=== PATIENT | male | born 1955 | race Caucasian/White ===

== ENCOUNTER 2021-06-01 03:23 | Emergency (ER) | payer MEDICARE, OTHER, SELFPAY ==
[2021-06-01 03:33] VITALS: BP 165/95; PULSE 77; RESP 18; TEMP 36.9; O2SAT 97; BMI 27.3
--- NOTE | 2021-06-01 03:40 | PC.NURSE ---
pt states his urine in his catheter has been pink to clear today but tonight it became bloody with clots, urine in catheter bag is noted to be bloody no clots noted at this time but pt states there has been some clots
--- NOTE | 2021-06-01 03:47 | ED.MALEGU ---
HPI - Male Genitourinary General Chief complaint: Urogenital-Male Stated complaint: BLOOD IN URINE BAG Time Seen by Provider: 06/01/21 03:42 Source: patient Mode of arrival: Ambulatory History of Present Illness HPI Narrative: Patient here with family. Complains of blood in the Ventura bag. Patient postop day 2 prostate surgery. At [facility]. He was discharged home yesterday in the afternoon. He states he had some pink/urine in the Ventura bag. However late tonight had nicole gross blood in catheter and bag. He is on blood thinner which he stopped last Saturday. He did resume it yesterday on Saturday. He is on Xarelto for atrial fibrillation. Patient has 200-300 mL of bright red blood in Ventura bag on arrival. Related Data Previous Rx's Medication Instructions Recorded nitrofurantoin 100 mg PO Q12H #10 cap 05/31/16 monohydrate/macrocrystals 100 mg capsule (Macrobid) Allergies Allergy/AdvReac Type Severity Reaction Status Date / Time adhesive tape [ADHESIVE TAPE] Allergy Mild skin Unverified 06/26/17 12:34 breaks out Review of Systems Review of Systems Narrative: GENERAL: Denies chills, fatigue, malaise, fever, sweats. HEENT: Denies sinus pain, ear pain, sore throat RESPIRATORY: Denies dyspnea, cough CARDIOVASCULAR: Denies chest pain, palpitations GASTROINTESTINAL: Denies nausea, vomiting, abdominal pain : Denies dysuria, frequency, positive for hematuria MUSCULOSKELETAL: denies muscle or bony pain SKIN: Denies rash, skin lesions NEUROLOGIC: Denies weakness, numbness ROS Unobtainable: All systems reviewed & are unremarkable except as noted in HPI and below Exam Narrative Exam Narrative: GENERAL: in no distress, not toxic not dyspneic HEAD: Normocephalic. EYES: Pupils equal round No scleral icterus. GASTROINTESTINAL: Abdomen soft, surgical incisions intact. Dry. : Bright red blood in Ventura tubing and catheter. Bladder scan 53 mL. NEURO: AOx4. SKIN: Warm and dry PSYCH: Not anxious, is cooperative Initial Vital Signs Initial Vital Signs: Vital Signs Temperature 98.5 F 06/01/21 03:33 Pulse Rate 77 06/01/21 03:33 Respiratory Rate 18 06/01/21 03:33 Blood Pressure 165/95 H 06/01/21 03:33 Pulse Oximetry 97 06/01/21 03:33 Course Orders Ordered: ED Orders 06/01/21 03:46 CBC Auto Diff [Complete Blood Count AUTO DIFF] Stat CMP [Comprehensive Metabolic Panel] Stat PT [Prothrombin Time INR] Stat PTT [Partial Thromboplastin Time] Stat Reevaluation(s) Reevaluation #1: Staff has irrigated the bladder as well as tubing. It is pink tinged irrigation into being and Ventura bag at this time. Time: 05:12 Consultations Consultation #1: Spoke with [facility]rology with [facility]. Spoke with Dr. Gonzalez, she instructs patient can be discharged from the emergency department this morning in to be in the office this morning at 8:30 a.m. in the morning. In 3 hours. Time: 05:31 Vital Signs Vital signs: Vital Signs - 8 hr 06/01/21 03:33 06/01/21 05:14 Temperature 98.5 F Pulse Rate 77 73 Respiratory Rate 18 Blood Pressure 165/95 H 162/81 H Pulse Oximetry 97 96 MDM - Male Genitourinary Lab Data Result diagrams: 06/01/21 04:12 06/01/21 04:12 Labs: Lab Results 06/01/21 06/01/21 06/01/21 Range/Units 04:12 04:12 04:12 WBC 10.0 (4.5-11.0) X10^3/uL RBC 4.36 L (4.5-5.9) X10^6/uL Hgb 13.1 L (13.5-17.5) g/dL Hct 39.3 L (41-53) % MCV 90.1 (80-100) fL MCH 30.1 (26-34) PG MCHC 33.4 (30-36) % RDW 13.5 (11.6-14.8) % Plt Count 156 (150-400) X10^3/uL Neut % (Auto) 76.7 H (50-75) % Lymph % (Auto) 14.3 L (25-40) % [place] % (Auto) 6.8 (3-14) % Eos % (Auto) 2.0 (2-4) % Baso % (Auto) 0.2 (0-2) % Neut # (Auto) 7700 H (6931-9189) /uL Lymph # (Auto) 1400 (5429-7713) /uL [place] # (Auto) 700 (0-900) /uL Eos # (Auto) 200 (0-450) /uL Baso # (Auto) 0 (0-100) /uL PT 15.5 H (10.1-12.7) SECONDS INR 1.4 H (0.9-1.3) APTT 33 (26.4-36.2) SECONDS Sodium 138 (137-145) mmol/L Potassium 3.8 (3.4-5.1) mmol/L Chloride 104 (98-107) mmol/L Carbon Dioxide 27 (22-32) mmol/L BUN 12 (9-20) mg/dL Creatinine 0.75 (0.66-1.25) mg/dL Estimated GFR > 60.0 (>60) mL/min BUN/Creatinine Ratio 16.0 (6-22) Glucose 184 H (80-110) mg/dL Calcium 8.5 (8.4-10.2) mg/dL Total Bilirubin 0.9 (0.2-1.3) mg/dL AST 24 (17-59) IU/L ALT 18 (<50) IU/L Alkaline Phosphatase 60 (38-126) U/L Total Protein 6.4 (6.3-8.2) g/dL Albumin 3.7 (3.5-5.0) g/dL Globulin 2.7 (1.7-4.1) g/dL Albumin/Globulin Ratio 1.4 (1.0-2.8) MDM Narrative Medical decision making narrative: Appropriate for discharge home. Laboratory studies are reassuring. No hypotension or tachycardia. Staff able to irrigate bladder and clear Ventura tube and bag. I did review with urologist on-call for patient's surgical group. Patient to be in the office in 3 hours for evaluation. He will not take his Xarelto today. Return precautions reviewed with patient and family. They agree with treatment plan and discharge Discharge Plan Departure Patient Disposition: Home Clinical Impression: Post-op bleeding Instructions: How to Care for Your Ventura Catheter -- Male Activity Restrictions/Additional Instructions: Be and your urologist office in 3 hours. Inform staff your here and the on-call urologist has given instruction free to be seen this morning at 8:[address] Gonzalez is on-call. Do not take Xarelto today. Return if worse if any questions or concerns Prescriptions: No Action nitrofurantoin monohyd/m-cryst [Macrobid] 100 MG capsule 100 mg PO Q12H Qty: 10 0RF
[2021-06-01 04:26] LABS: Add Manual Diff / Slide Review NO; Basophils Absolute Auto 0 /uL (0-100); Basophils Percent Auto 0.2 % (0-2); Eosinophils Absolute Auto 200 /uL (0-450); Hematocrit 39.3 % (41-53); Hemoglobin 13.1 g/dL (13.5-17.5); Lymphocytes Absolute Auto 1400 /uL (1100-4500); Lymphocytes Percent Auto 14.3 % (25-40); Mean Corpuscular HGB Conc 33.4 % (30-36); Mean Corpuscular Hemoglobin 30.1 PG (26-34); Mean Corpuscular Volume 90.1 fL (80-100); Monocytes Absolute Auto 700 /uL (0-900); Monocytes Percent Auto 6.8 % (3-14); Neutrophils Absolute Auto 7700 /uL (1500-7000); Neutrophils Percent Auto 76.7 % (50-75); Platelet Count 156 X10^3/uL (150-400); Red Blood Cell Count 4.36 X10^6/uL (4.5-5.9); Red Cell Distribution Width 13.5 % (11.6-14.8)
[2021-06-01 04:30] LABS: INR 1.4 (0.9-1.3); Prothrombin Time 15.5 SECONDS (10.1-12.7)
[2021-06-01 04:33] LABS: PTT Partial Thromboplastin Tim 33 SECONDS (26.4-36.2)
[2021-06-01 04:41] LABS: Alanine Aminotransferase 18 IU/L (<50); Albumin 3.7 g/dL (3.5-5.0); Albumin Globulin Ratio 1.4 (1.0-2.8); Alkaline Phosphatase 60 U/L (38-126); Aspartate Aminotransferase 24 IU/L (17-59); Bilirubin Total 0.9 mg/dL (0.2-1.3); Blood Urea Nitrogen 12 mg/dL (9-20); Calcium 8.5 mg/dL (8.4-10.2); Carbon Dioxide 27 mmol/L (22-32); Chloride 104 mmol/L (98-107); Estimated Glomerular Filt Rate > 60.0 mL/min (>60); Globulin 2.7 g/dL (1.7-4.1); Glucose 184 mg/dL (80-110); HEMOLYSIS < 15 (0-50); Potassium 3.8 mmol/L (3.4-5.1); Sodium 138 mmol/L (137-145); Total Protein 6.4 g/dL (6.3-8.2)
--- NOTE | 2021-06-01 05:10 | PC.NURSE ---
pt's ludwig irrigated with rochelle 700 ml NS with pink tinged fluid noted returning, Irrigation fluid hung to infuse thru catheter, pt tolerating procedure well
[2021-06-01 05:14] VITALS: BP 162/81; PULSE 73; O2SAT 96
[2021-06-01 05:30] VITALS: BP 167/83; PULSE 64; O2SAT 96
--- NOTE | 2021-06-01 05:42 | PC.NURSE ---
Addendum entered by Meseret Umana R.N. 06/01/21 06:14: pt received 2000ml irrigation fluid Original Note: irrigation complete, urine continues to be blood tinged
[2021-06-01 06:00] VITALS: BP 172/82; PULSE 62; O2SAT 97
[2021-06-01 06:30] VITALS: BP 174/83; PULSE 68; O2SAT 97
[2021-06-01 07:01] VITALS: BP 159/83; PULSE 81; O2SAT 96
--- NOTE | 2021-06-01 07:07 | PC.NURSE ---
catheter emptied, urine noted bloody with clots
== END 2021-06-01 07:09 | disposition home or self-care (01) ==
PROVIDERS: Emergency Provider Emergency Medicine
DX: N99.820 Postprocedural hemorrhage of a genitourinary system organ or structure following a genitourinary system procedure (principal); Z79.01 Long term (current) use of anticoagulants
CPT/HCPCS: 36415; 80053; 85025; 85610; 85730; 99283

== ENCOUNTER 2022-08-05 08:06 | Emergency (ER) | payer MEDICARE, OTHER, SELFPAY ==
[2022-08-05] VITALS (19 sets, daily range): BP systolic 91–126; BP diastolic 51–61; PULSE 50–60; RESP 18–25; TEMP 36.6; O2SAT 95–98; BMI 27.3
--- NOTE | 2022-08-05 08:08 | ED_ITS ---
HPI - Chest Pain General Chief Complaint: Arrhythmia/Palpitations Stated Complaint: heart pain,lbp Time Seen by Provider: 08/05/22 08:08 History of Present Illness HPI narrative: 66-year-old male nonsmoker with history of AFib on anticoagulation presents with his in the chief complaint of feeling unwell for at least the past 3 or 4 days. He states it started with some runny nose and a sore throat. He states the sore throat has been sufficient to interfere with him eating much or drinking much for the past few days. He denies any change in his medications or missed doses. He states that late last evening he went into an episode of atrial fibrillation that went away on its own by this morning and he presents today because he has been sweaty and feeling unwell. He feels dizzy and lightheaded particularly upon standing with improvement when he sits down. He denies nausea, vomiting or diarrhea. He has had no dysuria, frequency or urgency. Related Data Previous Rx's Medication Instructions Recorded nitrofurantoin 100 mg PO Q12H #10 caps 05/31/16 monohydrate/macrocrystals 100 mg capsule (Macrobid) Allergies Allergy/AdvReac Type Severity Reaction Status Date / Time adhesive tape [ADHESIVE TAPE] Allergy Mild skin Verified 08/05/22 09:41 breaks out tamsulosin [From Flomax] AdvReac Verified 08/05/22 09:41 Review of Systems Review of Systems Narrative: GENERAL: See HPI HEENT: See HPI RESPIRATORY: Denies dyspnea, cough, wheezing, hemoptysis, sputum. CARDIOVASCULAR: See HPI GASTROINTESTINAL: See HPI : Denies dysuria, frequency, incontinence, hematuria, urinary retention. MUSCULOSKELETAL: denies weakness, joint pain, or bony pain SKIN: Denies rash, skin lesions, or other NEUROLOGIC: Denies weakness, headache, numbness, change in speech, confusion, seizures, incoordination. PSYCHIATRIC: No concerning psychosocial issues. 12 point review of systems is negative except for those stated above Patient History Social History Smoking Status: Former smoker Exam Narrative Exam Narrative: GENERAL: [66] year old patient appears stated age. Well-developed patient, in mild distress. HEAD: Atraumatic. Normocephalic. EYES: Pupils equal round and reactive. Extraocular motions intact. No scleral icterus. No injection or drainage. ENT: Nose without bleeding, purulent drainage. Minimal erythema with postnasal drip, tonsillar hypertrophy or exudate. Airway patent. NECK: Trachea midline. Non tender CARDIOVASCULAR: Bradycardic but rhythm without murmurs, gallops, or rubs. RESPIRATORY: Clear to auscultation. Breath sounds equal bilaterally. No wheezes, rales, or rhonchi. GASTROINTESTINAL: Abdomen soft, non-tender, nondistended. EXTREMITIES: No edema or joint tenderness. BACK: Nontender without deformity or crepitance. No flank tenderness. NEURO: AOx3. SKIN: No rash or erythema of visible areas Initial Vital Signs Initial Vital Signs: Vital Signs Pulse Rate 51 L 08/05/22 08:10 Pulse Oximetry 97 08/05/22 08:10 Course Orders Ordered: ED Orders 08/05/22 08:13 Complete Blood Count AUTO DIFF Stat Comprehensive Metabolic Panel Stat Covid-19 + FLU A/B + RSV - PCR Stat Lactate (Lactic Acid) Stat Magnesium Stat NT-proBNP (BNP-Adult 18+) Stat Procalcitonin Stat Strep Grp A by PCR Rapid Stat Throat Culture Stat Troponin & CK Cardiac Panel Stat EKG-12 Lead Stat 08/05/22 08:35 Blood Culture Stat 08/05/22 10:35 BMP [Basic Metabolic Panel] Stat Troponin & CK Cardiac Panel Stat Discontinued Medications Lactated Ringer's (Lactated Ringers) 1,000 mls @ 1,000 mls/hr IV BOLUS ONE Stop: 08/05/22 09:10 Last Infusion: 08/05/22 09:41 Dose: 0 mls/hr Documented By: Admin: 08/05/22 08:17 Dose: 1,000 mls/hr Documented By: GRADY Lactated Ringer's (Lactated Ringers) 1,000 mls @ 1,000 mls/hr IV BOLUS ONE Stop: 08/05/22 10:46 Last Infusion: 08/05/22 11:00 Dose: 0 mls/hr Documented By: Admin: 08/05/22 09:55 Dose: 1,000 mls/hr Documented By: CTS Vital Signs Vital signs: Vital Signs - 8 hr 08/05/22 08:18 08/05/22 08:10 08/05/22 08:14 Temperature 97.8 F Pulse Rate 50 L 51 L 50 L Pulse Rate [Orthostatic Lying] Pulse Rate [Orthostatic Sitting] Pulse Rate [Orthostatic Standing] Respiratory Rate 18 Blood Pressure 109/56 L Blood Pressure [Orthostatic Lying] Blood Pressure [Orthostatic Sitting] Blood Pressure [Orthostatic Standing] Pulse Oximetry 98 97 98 Oxygen Delivery Method Room Air 08/05/22 08:14 08/05/22 08:30 08/05/22 08:30 Temperature Pulse Rate 59 L Pulse Rate [Orthostatic Lying] Pulse Rate [Orthostatic Sitting] Pulse Rate [Orthostatic Standing] Respiratory Rate 21 Blood Pressure 109/56 L 91/51 L Blood Pressure [Orthostatic Lying] Blood Pressure [Orthostatic Sitting] Blood Pressure [Orthostatic Standing] Pulse Oximetry 97 Oxygen Delivery Method 08/05/22 08:45 08/05/22 08:45 08/05/22 09:00 Temperature Pulse Rate 57 L Pulse Rate [Orthostatic Lying] Pulse Rate [Orthostatic Sitting] Pulse Rate [Orthostatic Standing] Respiratory Rate 18 Blood Pressure 99/55 L 104/58 L Blood Pressure [Orthostatic Lying] Blood Pressure [Orthostatic Sitting] Blood Pressure [Orthostatic Standing] Pulse Oximetry 96 Oxygen Delivery Method 08/05/22 09:00 08/05/22 09:15 08/05/22 09:15 Temperature Pulse Rate 56 L 56 L Pulse Rate [Orthostatic Lying] Pulse Rate [Orthostatic Sitting] Pulse Rate [Orthostatic Standing] Respiratory Rate 18 18 Blood Pressure 106/56 L Blood Pressure [Orthostatic Lying] Blood Pressure [Orthostatic Sitting] Blood Pressure [Orthostatic Standing] Pulse Oximetry 95 95 Oxygen Delivery Method 08/05/22 11:06 Temperature Pulse Rate Pulse Rate [Orthostatic Lying] 52 L Pulse Rate [Orthostatic Sitting] 56 L Pulse Rate [Orthostatic Standing] 56 L Respiratory Rate Blood Pressure Blood Pressure [Orthostatic Lying] 109/59 L Blood Pressure [Orthostatic Sitting] 126/57 L Blood Pressure [Orthostatic Standing] 119/57 L Pulse Oximetry Oxygen Delivery Method MDM - Chest Pain Lab Data 08/05/22 08:13 08/05/22 10:35 Labs: Lab Results 08/05/22 08/05/22 08/05/22 Range/Units 08:13 08:13 08:13 WBC 7.4 (4.5-11.0) X10^3/uL RBC 5.35 (4.5-5.9) X10^6/uL Hgb 16.0 (13.5-17.5) g/dL Hct 47.0 (41-53) % MCV 87.8 (80-100) fL MCH 30.0 (26-34) PG MCHC 34.2 (30-36) % RDW 13.8 (11.6-14.8) % Plt Count 188 (150-400) X10^3/uL Neut % (Auto) 60.4 (50-75) % Lymph % (Auto) 27.7 (25-40) % [place] % (Auto) 11.0 (3-14) % Eos % (Auto) 0.4 L (2-4) % Baso % (Auto) 0.5 (0-2) % Neut # (Auto) 4500 (1901-0920) /uL Lymph # (Auto) 2100 (1125-3151) /uL [place] # (Auto) 800 (0-900) /uL Eos # (Auto) 0 (0-450) /uL Baso # (Auto) 0 (0-100) /uL Sodium (137-145) mmol/L Potassium (3.4-5.1) mmol/L Chloride (98-107) mmol/L Carbon Dioxide (22-32) mmol/L BUN (9-20) mg/dL Creatinine (0.66-1.25) mg/dL Estimated GFR (>60) mL/min BUN/Creatinine Ratio (6-22) Glucose (80-110) mg/dL Lactate (0.7-2.1) mmol/L Calcium (8.4-10.2) mg/dL Magnesium (1.6-2.3) mg/dL Total Bilirubin (0.2-1.3) mg/dL AST (17-59) IU/L ALT (<50) IU/L Alkaline Phosphatase (38-126) U/L Total Creatine Kinase (55-170) U/L CK-MB (CK-2) CK-MB (CK-2) Rel Index Troponin I (0.01-0.034) ng/mL NT-Pro-B Natriuret Pep (<125) pg/mL Total Protein (6.3-8.2) g/dL Albumin (3.5-5.0) g/dL Globulin (1.7-4.1) g/dL Albumin/Globulin Ratio (1.0-2.8) Procalcitonin 0.13 (<0.5) ng/mL SARS-CoV-2 (PCR) (Negative) Influenza A (RT-PCR) (NEGATIVE) Influenza B (RT-PCR) (NEGATIVE) RSV (PCR) (Negative) Group A Strep (PCR) Negative (Negative) 08/05/22 08/05/22 08/05/22 Range/Units 08:13 08:13 08:13 WBC (4.5-11.0) X10^3/uL RBC (4.5-5.9) X10^6/uL Hgb (13.5-17.5) g/dL Hct (41-53) % MCV (80-100) fL MCH (26-34) PG MCHC (30-36) % RDW (11.6-14.8) % Plt Count (150-400) X10^3/uL Neut % (Auto) (50-75) % Lymph % (Auto) (25-40) % [place] % (Auto) (3-14) % Eos % (Auto) (2-4) % Baso % (Auto) (0-2) % Neut # (Auto) (2340-2622) /uL Lymph # (Auto) (3553-2208) /uL [place] # (Auto) (0-900) /uL Eos # (Auto) (0-450) /uL Baso # (Auto) (0-100) /uL Sodium 132 L (137-145) mmol/L Potassium 4.2 (3.4-5.1) mmol/L Chloride 93 L (98-107) mmol/L Carbon Dioxide 25 (22-32) mmol/L BUN 32 H (9-20) mg/dL Creatinine 1.36 H (0.66-1.25) mg/dL Estimated GFR 57 L (>60) mL/min BUN/Creatinine Ratio 23.5 H (6-22) Glucose 238 H (80-110) mg/dL Lactate 2.2 H (0.7-2.1) mmol/L Calcium 9.3 (8.4-10.2) mg/dL Magnesium 1.9 (1.6-2.3) mg/dL Total Bilirubin 0.6 (0.2-1.3) mg/dL AST 32 (17-59) IU/L ALT 30 (<50) IU/L Alkaline Phosphatase 99 (38-126) U/L Total Creatine Kinase 52 L (55-170) U/L CK-MB (CK-2) TNP CK-MB (CK-2) Rel Index TNP Troponin I 0.035 H (0.01-0.034) ng/mL NT-Pro-B Natriuret Pep 206 H (<125) pg/mL Total Protein 7.2 (6.3-8.2) g/dL Albumin 4.2 (3.5-5.0) g/dL Globulin 3.0 (1.7-4.1) g/dL Albumin/Globulin Ratio 1.4 (1.0-2.8) Procalcitonin (<0.5) ng/mL SARS-CoV-2 (PCR) Positive H (Negative) Influenza A (RT-PCR) Flu a negative (NEGATIVE) Influenza B (RT-PCR) Flu b negative (NEGATIVE) RSV (PCR) Negative (Negative) Group A Strep (PCR) (Negative) 08/05/22 08/05/22 Range/Units 10:35 10:35 WBC (4.5-11.0) X10^3/uL RBC (4.5-5.9) X10^6/uL Hgb (13.5-17.5) g/dL Hct (41-53) % MCV (80-100) fL MCH (26-34) PG MCHC (30-36) % RDW (11.6-14.8) % Plt Count (150-400) X10^3/uL Neut % (Auto) (50-75) % Lymph % (Auto) (25-40) % [place] % (Auto) (3-14) % Eos % (Auto) (2-4) % Baso % (Auto) (0-2) % Neut # (Auto) (6946-3751) /uL Lymph # (Auto) (4007-8786) /uL [place] # (Auto) (0-900) /uL Eos # (Auto) (0-450) /uL Baso # (Auto) (0-100) /uL Sodium 131 L (137-145) mmol/L Potassium 4.3 (3.4-5.1) mmol/L Chloride 96 L (98-107) mmol/L Carbon Dioxide 25 (22-32) mmol/L BUN 32 H (9-20) mg/dL Creatinine 1.07 (0.66-1.25) mg/dL Estimated GFR > 60 (>60) mL/min BUN/Creatinine Ratio 29.9 H (6-22) Glucose 203 H (80-110) mg/dL Lactate 1.7 (0.7-2.1) mmol/L Calcium 8.4 (8.4-10.2) mg/dL Magnesium (1.6-2.3) mg/dL Total Bilirubin (0.2-1.3) mg/dL AST (17-59) IU/L ALT (<50) IU/L Alkaline Phosphatase (38-126) U/L Total Creatine Kinase 41 L (55-170) U/L CK-MB (CK-2) TNP CK-MB (CK-2) Rel Index TNP Troponin I (0.01-0.034) ng/mL NT-Pro-B Natriuret Pep (<125) pg/mL Total Protein (6.3-8.2) g/dL Albumin (3.5-5.0) g/dL Globulin (1.7-4.1) g/dL Albumin/Globulin Ratio (1.0-2.8) Procalcitonin (<0.5) ng/mL SARS-CoV-2 (PCR) (Negative) Influenza A (RT-PCR) (NEGATIVE) Influenza B (RT-PCR) (NEGATIVE) RSV (PCR) (Negative) Group A Strep (PCR) (Negative) Point of Care Testing Glucose POC 241 ECG Data Interpretation: [0816] EKG is sinus ramesh with normal rhythm rate [ 51] and free of any signs of ischemia or ectopy. No ST segmental elevation or depression. No T wave inversions. 1st degree block NE 224 MDM Narrative Medical decision making narrative: CC: 66-year-old male with sore throat, sweating, dizzy and lightheaded, recent AFib Complicating co-morbidities: Age, AFib on anticoagulation Data collected from: Patient Medical records reviewed: Prior notes reviewed in our EMR Differential considered, but not limited to: Strep pharyngitis, COVID, flu, cardiac ischemia, other infectious source, dehydration, electrolyte abnormality versus other Exam documented above, pertinent findings include: Moist mucous membranes, slightly erythematous posterior pharynx, heart rate is regular though slightly slow, no significant increased work of breathing or abnormal lung sounds, abdomen soft Lab Test results independently reviewed as above. Pertinent findings: Independently reviewed EKG as above Treatments: Fluids x2L Re-evaluations: Patient feeling significant improvement after fluids. No longer dizzy. Orthostatic negative. Labs improved Discussion: Patient with various symptoms for the past few days, questionably had an AFib episode last night which had resolved prior to his arrival. He has had sore throat for the past 4 days but states that it is improving. His primary complaint is of lightheadedness upon standing. His exam is very reassuring, labs initially noted some evidence of dehydration with increased creatinine, his initial lactate was elevated as well. Patient was given 2 L of fluids and felt significant improvement, labs improved, he is no longer orthostatic, he is ambulatory in the department and tolerating orals. He is in no respiratory distress. He has had symptoms for the past 4 days and presumably the sore throat has been from COVID. That being said he is not a great candidate for Paxlovid at this time Disposition: see below, along with detailed discharge instructions that have been reviewed with patient as well as indications for ED re-evaluation and additional outpatient follow up Discharge Plan Departure Patient Disposition: Home Clinical Impression: COVID-19, Acute dehydration Instructions: DI for Dehydration -- Adult, COVID-19 Activity Restrictions/Additional Instructions: *You have been diagnosed with [ COVID-19] *What to do: ?* per recommendations from the CDC and the [facility] Department of Health ?* stay home except to get medical care. ?Restrict activities outside your home, except for getting medical care. ?Do not go to work, school, or public areas. ?Avoid using public transportation, ride sharing, or taxis. ?* separate yourself from other people in your home. ?* call ahead before visiting your doctor ?* Wear a facemask ?* Cover your coughs and sneezes ?* Clean your hands often ?* Avoid sharing household items ?* Clean all high-touch services every day ?* Monitor your symptoms and seek prompt medical attention if your illness is worsening, particularly with difficulty in breathing. You may discontinue your isolation when: ?1. You have been fever-free for at least 24 hours without the use of fever reducing medication, AND ?2. Your symptoms are getting better, AND ?3. At least 5 days have passed since symptoms first appeared ?4. If you have fever, continue to stay home until fever resolves Individuals with laboratory confirmed COVID-19 who have not had any symptoms may discontinue home isolation when at least 5 days have passed since the date of their first COVID-19 diagnostic test and have had no subsequent illness You should notifiy any friends and family that have been in close contact *If up to date on COVID Vaccines, then they do not need to quarantine unless symptoms develop. Get tested on day 5 (or sooner if symptoms develop). Take precautions and watch for symptoms until day 10 *If NOT up to date on COVID Vaccines, then CDC recommends quarantine for at least 5 full days. Wear a well fitted mask at home if you must be around others. If they ?develop symptoms they should get tested. If they remain asymptomatic they should get tested on day 5. They should take precautions and monitor for symptoms until day 10. Prescriptions: No Action nitrofurantoin monohyd/m-cryst [Macrobid] 100 MG capsule 100 mg PO Q12H Qty: 10 0RF Stand Alone Forms: Patient Portal/API
[2022-08-05] MEDS: LACTATED RINGERS 1,000 ML 1000 ML IV ×2 (08:17→09:55)
[2022-08-05 08:29] LABS: Add Manual Diff / Slide Review NO; Basophils Absolute Auto 0 /uL (0-100); Basophils Percent Auto 0.5 % (0-2); Eosinophils Absolute Auto 0 /uL (0-450); Eosinophils Percent Auto 0.4 % (2-4); Lymphocytes Absolute Auto 2100 /uL (1100-4500); Lymphocytes Percent Auto 27.7 % (25-40); Mean Corpuscular HGB Conc 34.2 % (30-36); Mean Corpuscular Volume 87.8 fL (80-100); Monocytes Absolute Auto 800 /uL (0-900); Neutrophils Absolute Auto 4500 /uL (1500-7000); Neutrophils Percent Auto 60.4 % (50-75); Platelet Count 188 X10^3/uL (150-400); Red Blood Cell Count 5.35 X10^6/uL (4.5-5.9); Red Cell Distribution Width 13.8 % (11.6-14.8); White Blood Cell Count 7.4 X10^3/uL (4.5-11.0)
[2022-08-05 08:47] LABS: Lactate (Lactic Acid) 2.2 mmol/L (0.7-2.1)
[2022-08-05 08:49] LABS: Alanine Aminotransferase 30 IU/L (<50); Albumin 4.2 g/dL (3.5-5.0); Albumin Globulin Ratio 1.4 (1.0-2.8); Alkaline Phosphatase 99 U/L (38-126); Aspartate Aminotransferase 32 IU/L (17-59); BUN Creatinine Ratio 23.5 (6-22); Bilirubin Total 0.6 mg/dL (0.2-1.3); Blood Urea Nitrogen 32 mg/dL (9-20); Calcium 9.3 mg/dL (8.4-10.2); Carbon Dioxide 25 mmol/L (22-32); Chloride 93 mmol/L (98-107); Creatine Kinase 52 U/L (55-170); Estimated Glomerular Filt Rate 57 mL/min (>60); Glucose 238 mg/dL (80-110); HEMOLYSIS < 15 (0-50); Magnesium 1.9 mg/dL (1.6-2.3); Potassium 4.2 mmol/L (3.4-5.1); Sodium 132 mmol/L (137-145); Total Protein 7.2 g/dL (6.3-8.2)
[2022-08-05 08:53] LABS: Strep Grp A by PCR Rapid Negative (Negative)
[2022-08-05 09:00] LABS: NT-proBNP (BNP-Adult 18+) 206 pg/mL (<125); Troponin I 0.035 ng/mL (0.01-0.034)
[2022-08-05 09:22] LABS: Influenza A - CEPHEID Flu A NEGATIVE (NEGATIVE); Influenza B - CEPHEID Flu B NEGATIVE (NEGATIVE); Respiratory Syncytial Virus Negative (Negative)
[2022-08-05 09:27] LABS: Procalcitonin 0.13 ng/mL (<0.5)
[2022-08-05 09:40] LABS: COVID-19 CEPHEID 4-PLEX PCR POSITIVE (Negative)
[2022-08-05 10:24] LABS: Reflexed Lactate in 2 Hours Y
[2022-08-05 10:54] LABS: Lactate 2HR (Lactic Acid Rflx) 1.7 mmol/L (0.7-2.1)
[2022-08-05 11:12] LABS: BUN Creatinine Ratio 29.9 (6-22); Blood Urea Nitrogen 32 mg/dL (9-20); Calcium 8.4 mg/dL (8.4-10.2); Carbon Dioxide 25 mmol/L (22-32); Chloride 96 mmol/L (98-107); Creatine Kinase 41 U/L (55-170); Estimated Glomerular Filt Rate > 60 mL/min (>60); Glucose 203 mg/dL (80-110); HEMOLYSIS 18 (0-50); Potassium 4.3 mmol/L (3.4-5.1); Sodium 131 mmol/L (137-145)
[2022-08-05 11:24] LABS: Troponin I 0.022 ng/mL (0.01-0.034)
== END 2022-08-05 11:44 | disposition home or self-care (01) ==
PROVIDERS: Emergency Provider Emergency Medicine
DX: U07.1 COVID-19 (principal); E86.0 Dehydration; I48.91 Unspecified atrial fibrillation; Z79.01 Long term (current) use of anticoagulants
CPT/HCPCS: 0241U; 36415; 80048; 80053; 82550; 82962; 83605; 83735; 83880; 84145; 84484; 85025; 87040; 87070; 87651; 93005; 93010; 96360; 96361; 99284